=== PATIENT | female | born 1970 | race Caucasian/White ===

== ENCOUNTER 2018-05-12 14:31 | Emergency (ER) | payer MEDICAID, OTHER ==
[2018-05-12] MEDS: DIPHENHYDRAMINE 25 MG CAP PO (16:41)
[2018-05-12] MEDS: predniSONE 20 MG TAB PO (16:41)
== END 2018-05-12 17:34 | disposition home or self-care (01) ==
LOC: FTE 14:31
DX: T14.8XXA Other injury of unspecified body region, initial encounter (principal); F17.210 Nicotine dependence, cigarettes, uncomplicated; W57.XXXA Bitten or stung by nonvenomous insect and other nonvenomous arthropods, initial encounter; Y92.9 Unspecified place or not applicable
CPT/HCPCS: 81025; 99283